=== PATIENT | male | born 1945 | race Caucasian/White ===

== ENCOUNTER 2018-07-24 09:01 | Inpatient (IN) | payer OTHER ==
[~2018-07-24] VITALS: Ht 188 cm; Wt 114.3 kg
--- NOTE | ~2018-07-24 | CON ---
[address] [address] CONSULTATION Name: MEDINA LEGGETT Room: [address] IN ..#: [id number] Admission: 07/24/18 Attend Phys: Villa Hurtado MD Discharge: Date of : 49 Report #: [id number] THIS REPORT FOR: //name// CC: Villa Hurtado FAM unknown [place] CLINIC DATE OF SERVICE: 07/25/2018 HISTORY OF PRESENT ILLNESS: This is a pleasant 73-year-old gentleman with past medical history of multiple sclerosis who is presenting with progressively worsening weakness. The GI service has been consulted for evaluation of abnormal thickening found at the neck of the gallbladder. The patient presented to the hospital with profound weakness and this was determined to be due to multiple sclerosis flare. He denies any abdominal pain, nausea, vomiting, hematemesis, hematochezia or diarrhea. He denies known prior history of gallstones. PAST MEDICAL HISTORY: Significant for multiple sclerosis. PAST SURGICAL HISTORY: The patient had a remote history of a repair in his hand for fracture, left testicle removed as a child. SOCIAL HISTORY: The patient quit smoking a few years back. Prior to that had a [id number] history of smoking. He denies any significant alcohol or recreational drug use. FAMILY HISTORY: There is no family history of colon cancer or [place] related neoplasia. The patient's father although was diagnosed with pancreatic cancer at age 69. REVIEW OF SYSTEMS: A comprehensive 10-point review of systems is negative except what is mentioned in the HPI. PHYSICAL EXAMINATION: VITAL SIGNS: Temperature 36.5, pulse rate 74, respirations 14, blood pressure 121/64. GENERAL: The patient is alert, awake, oriented x 3. HEENT: Pupils are equal, round, reactive to light and accommodation. Mucous membranes are moist. There is no congestion. LUNGS: Clear to auscultation bilaterally. CARDIOVASCULAR: Rate and rhythm regular. S1, S2 present. ABDOMEN: Soft. Gordon sign negative. No guarding or rigidity. IMAGING: Abdomen and pelvis CT demonstrates simple appearing bilateral renal cysts. Nonspecific circumferential bladder wall [place] [id number] CONSULTATION Name: MEDINA LEGGETT Room: [address] IN [facility]#: [id number] Admission: 07/24/18 Attend Phys: Villa Hurtado MD Discharge: Date of : 49 Report #: [id number] neck of the gallbladder, this might reflect previous scarring related to stricturing from stone passage disease or a neoplastic process which cannot be entirely excluded. There is no nodularity. ASSESSMENT AND PLAN: Pleasant 73-year-old gentleman with history of multiple sclerosis admitted with progressive weakness. The patient was incidentally found to have a narrowing at the neck of the gallbladder. GI service has been consulted to evaluate this patient. The patient denies any abdominal pain related to this imaging finding. I would recommend getting a EUS as an outpatient to evaluate this further. The patient reports that he would like to go to the [facility] to have the endoscopic ultrasound done. We will reach out to the patient in about 2 weeks' time to see if [facility] or would like to get it done with us. Thanks for this consultation. No further endoscopic intervention is necessary at this time. By: [id number] Hardin MD /nt
[2018-07-24 09:01] VITALS: BP 130/90
[~2018-07-24 09:01] MED LIST: ASPIRIN81 M2 PO; BACLOFEN 10MG T10 MG PO; BACLOFEN20 MG PO; CHOLESTEROL MED; COUMADIN 3 MG TA3 MG PO; PRAVACHOL 20 MG20 M1 PO
[2018-07-24] MEDS ORDERED: ELIQUIS5 MG PO (09:28)
[2018-07-24] MEDS ORDERED: FLECAINIDE ACET50 M1 PO (09:29)
[2018-07-24 09:30] LABS: HEMATOCRIT 43.4 % (42.0-52.0); HEMOGLOBIN 14.8 gm/dL (14.0-18.0); MCH 31.5 pg (26.0-34.0); MCHC 34.2 g/dL (28.0-37.0); MCV 92.1 fL (80.0-100.0); MPV 8.4 fl. (7.2-11.1); NUCLEATED RBCS 0 /100WBC; PLATELET COUNT* 170 thou/uL (150-400); RBC 4.71 mil/uL (4.50-6.00); RDW-CV 13.9 % (10.5-14.5); WBC 25.5 thou/uL (4.0-11.0)
[2018-07-24] MEDS ORDERED: COZAAR 25 MG TA25 M2 PO (09:30)
[2018-07-24] MEDS ORDERED: LASIX 20 MG TAB20 MG PO (09:30)
[2018-07-24] MEDS ORDERED: LEXAPRO20 MG PO (09:30)
[2018-07-24] MEDS ORDERED: LEVOXYL100 MCG PO (09:30)
[2018-07-24] MEDS ORDERED: CALCIUM 500 +1 EAC5 PO (09:31)
[2018-07-24] MEDS ORDERED: LINZESS145 MCG PO (09:32)
[2018-07-24 09:42] LABS: APTT 36.5 Seconds (25.0-31.3)
[2018-07-24 09:45] LABS: URINE BILIRUBIN NEGATIVE (Negative); URINE BLOOD TRACE (Negative); URINE CLARITY CLEAR; URINE COLOR DARK YELLOW; URINE GLUCOSE-RANDOM NEGATIVE (Negative); URINE KETONES NEGATIVE (Negative); URINE LEUKOCYTES-REFLEX TRACE (Negative); URINE NITRITE-REFLEX NEGATIVE (Negative); URINE PROTEIN NEGATIVE (Negative); URINE UROBILINOGEN 0.2 E.U./dl (0.2-1.0)
[2018-07-24 09:51] LABS: ANION GAP 12 mmol/L (7-16); BUN 13 mg/dL (7-18); CHLORIDE 102 mmol/L (98-107); CO2 24 mmol/L (21-32); GLUCOSE 131 mg/dL (70-99); SODIUM 138 mmol/L (136-145)
[2018-07-24 09:52] LABS: ALBUMIN 3.7 g/dL (3.4-5.0); ALKALINE PHOSPHATASE 104 U/L (46-116); NT-PRO BRAIN NAT PEPTIDE 153 pg/mL (<300); SGOT 22 U/L (15-37); SGPT 43 U/L (30-65); TOTAL BILIRUBIN 0.6 mg/dL (<0.1-1.0); TOTAL PROTEIN 7.6 g/dL (6.4-8.2); TROPONIN-I LEVEL <0.06 ng/mL (<0.06)
[2018-07-24 10:05] LABS: SQUAMOUS 4-10 Moderate /LPF (0-3)
[2018-07-24 10:06] LABS: URINE RBC 0-2 Rare /HPF (0-2); URINE WBC-REFLEX 6-15 Few /HPF (0-5)
[2018-07-24 10:07] LABS: BACTERIA-REFLEX 1-9 Few /HPF (None Seen); CASTS None Seen /LPF (None Seen); CRYSTALS None Seen /LPF (None Seen); MUCUS >6 Heavy strn/LPF (None Seen)
[2018-07-24 10:23] LABS: ABSOLUTE MONOCYTES 2.3 thou/uL (0.0-1.2); ABSOLUTE NEUTROPHILS 22.2 thou/uL (1.6-8.1)
[2018-07-24 10:24] LABS: PLATELET ESTIMATE ADEQUATE
[2018-07-24 10:26] LABS: TOXIC GRANULATION 1+
[2018-07-24 12:40] VITALS: BP 111/62
--- NOTE | 2018-07-24 13:30 | NUR ---
PT ARRIVED TO UNIT FROM ER AT 1240. VITALS STABLE. IV PATENT. ADMIT COMPLETE. FALL RISK BUT IS REFUSING FALL PRECAUTIONS. EDUCATED ON FALL RISKS. CALL LIGHT WITHIN REACH. WILL CONTINUE TO MONITOR.
[2018-07-24 13:31] VITALS: BP 141/61
--- NOTE | 2018-07-24 15:44 | EKG ---
[place] [address] ELECTROCARDIOGRAM REPORT Name: MEDINA LEGGETT Room: [address] IN [facility]#: [id number] Admission: 07/24/18 Attend Phys: Villa Hurtado MD Discharge: Date of : 49 Report #: [id number] THIS REPORT FOR: //name// [facility] ED Test Date: 2018-07-24 Test Time: 09:10:13 Pat Name: MEDINA LEGGETT Department: Room: [facility] Gender: M Field Service Coordinator: KENDY : 1945 Requested By: Wyatt Hernández Order Number: [id number] MD: Chase Goodson Measurements Intervals [place] Rate: 97 P: 52 KS: 163 QRS: 31 QRSD: 114 T: 44 QT: 352 QTc: 447 Interpretive Statements Sinus rhythm Borderline intraventricular conduction delay Abnormal inferior Q waves No previous ECG available for comparison Electronically Signed On 07-24-2018 15:44:21 CDT by Chase Goodson [email or web address] <ELECTRONICALLY SIGNED> By: Chase Goodson MD, [facility] 07/24/18 1544 9 9 Chase Goodson MD, FACC /EPI
--- NOTE | 2018-07-24 16:55 | NUR ---
PT RESTED IN BED SINCE LAST SHIFT. VITALS STABLE. UP WITH 1 USING GAITBELT AND WALKER. STRAIGHT CATH SELF AND WILL LET KNOW WHEN NEEDED. REFUSES FALL PRECAUTIONS, EDUCATION GIVEN. TOLERATED MEAL. IV PATENT. CALL LIGHT WITHIN REACH. WILL CONTINUE TO MONITOR.
[2018-07-24 20:20] VITALS: BP 129/73
[2018-07-25 04:21] LABS: ABSOLUTE BASOPHILS 0.1 thou/uL (0.0-0.2); ABSOLUTE EOSINOPHILS 0.3 thou/uL (0.0-0.7); ABSOLUTE LYMPHOCYTES 2.2 thou/uL (0.8-5.3); ABSOLUTE MONOCYTES 1.1 thou/uL (0.0-1.2); ABSOLUTE NEUTROPHILS 10.1 thou/uL (1.6-8.1); BASOPHILS 0.4 %; EOSINOPHILS 1.9 %; HEMATOCRIT 40.6 % (42.0-52.0); HEMOGLOBIN 13.4 gm/dL (14.0-18.0); LYMPHOCYTES 16.2 %; MCH 31.2 pg (26.0-34.0); MCHC 33.1 g/dL (28.0-37.0); MCV 94.3 fL (80.0-100.0); MONOCYTES 7.9 %; MPV 8.8 fl. (7.2-11.1); NUCLEATED RBCS 0 /100WBC; PLATELET COUNT* 156 thou/uL (150-400); POLYS 73.6 %; RBC 4.31 mil/uL (4.50-6.00); RDW-CV 13.9 % (10.5-14.5); WBC 13.7 thou/uL (4.0-11.0)
[2018-07-25 04:58] LABS: CALCIUM 8.2 mg/dL (8.5-10.1); POTASSIUM 3.5 mmol/L (3.5-5.1)
--- NOTE | 2018-07-25 05:46 | NUR ---
PATIENT HAS SLEPT WELL THROUGHOUT THE NIGHT. VSS ON RA. NO C/O PAIN. PATIENT IS UP WITH MAX ASSIST D/T GENERALIZED WEAKNESS. MEDICATIONS GIVEN ORDERED AND CHARTED. PATIENT STRAIGHT CATHING HIMSELF DURING THE NIGHT WITH ADEQUATE URINE OUTPUT. IV IN LEFT FOREARM-NS @ 100ML/HR. PATIENT INSTRUCTED TO USE CALL LIGHT WHEN NEEDING ASSISTANCE. HOURLY ROUNDS MADE. WILL CONTINUE WITH PLAN OF CARE AND NURSING TO MONITOR.
[2018-07-25 07:58] VITALS: BP 121/64
--- NOTE | 2018-07-25 11:22 | NUR ---
SW met with pt and pt to complete initial assessment, introduce self, and SW role. Pt alert, oriented. Pt jovial, made a joke out of practically every question during assessment. Pt lives at home with . Pt admits pt wants to be strong enough not to fall again at home if pt dc soon. PT came in to work with pt; pt also making jokes after every question with PT. SW to continue to follow to assist with safe dc planning.
--- NOTE | 2018-07-25 18:15 | NUR ---
PT A&Ox4. MINIMAL PAIN, DENIED PAIN MEDS. UP WITH 1. WORKED WELL WITH THERAPY. CONTINUES TO SELF CATH. IV PATENT, INFUSING. REFUSING BED ALARMS. EDUCATED ON FALL RISKS. TOLERATING MEALS. [facility]. WILL CONTINUE TO MONITOR.
[2018-07-25 20:00] VITALS: BP 144/72
[2018-07-26 01:13] LABS: ABSOLUTE EOSINOPHILS 0.3 thou/uL (0.0-0.7); ABSOLUTE LYMPHOCYTES 1.7 thou/uL (0.8-5.3); ABSOLUTE MONOCYTES 1.1 thou/uL (0.0-1.2); ABSOLUTE NEUTROPHILS 6.7 thou/uL (1.6-8.1); BASOPHILS 0.5 %; EOSINOPHILS 3.3 %; HEMATOCRIT 41.2 % (42.0-52.0); HEMOGLOBIN 13.7 gm/dL (14.0-18.0); LYMPHOCYTES 17.2 %; MCH 31.2 pg (26.0-34.0); MCHC 33.2 g/dL (28.0-37.0); MONOCYTES 10.8 %; MPV 8.8 fl. (7.2-11.1); NUCLEATED RBCS 0 /100WBC; PLATELET COUNT* 153 thou/uL (150-400); POLYS 68.2 %; RBC 4.39 mil/uL (4.50-6.00); RDW-CV 14.3 % (10.5-14.5); WBC 9.8 thou/uL (4.0-11.0)
[2018-07-26 01:45] LABS: ALBUMIN 3.1 g/dL (3.4-5.0); TOTAL BILIRUBIN 0.4 mg/dL (<0.1-1.0); TOTAL PROTEIN 6.8 g/dL (6.4-8.2)
--- NOTE | 2018-07-26 07:03 | NUR ---
PATIENT SLEPT WELL THROUGHOUT THE NIGHT. VSS ON RA. NO C/O PAIN. MEDICATIONS GIVEN ORDERED AND CHARTED. PATIENT UP WITH MAX ASSIST TO BSC. PATIENT SELF CATH'S HIMSELF. NO IV AT THIS TIME. PATIENT INSTRUCTED TO USE CALL LIGHT WHEN NEEDING ASSISTANCE. HOURLY ROUNDS MADE. WILL CONTINUE WITH PLAN OF CARE AND NURSING TO MONITOR.
[2018-07-26 07:40] VITALS: BP 127/76
--- NOTE | 2018-07-26 10:27 | NUR ---
Nutrition: Pt admitted with UTI, sepsis. Not currently on sepsis protocol. MS flare up. CHO controlled diet. Tolerating meals. Albumin 3.1. Wt: 252#. Appears at low nutrition risk.
--- NOTE | 2018-07-26 17:02 | NUR ---
ASSUMED CARE OF PATIENT AT APPROX 0730. ALERT AND OREINTED X4. ASSESSMENT COMPLETED AND CHARTED. VSS ON ROOM AIR. NEW IV ACCESS STARTED, FLUIDS AND ANTIBIOTICS INFUSED ORDERED. PATIENT GENERALLY NONCOMPLIANT AND ACCUSING STAFF OF NOT HELPING HIM NEEDED. PATIENT DOES NOT USE CALL LIGHT AT ALL FOR NEEDS. ADMIN KAILEE CALLED OUT FROM PATIENTS ROOM THIS MORNING, ASKIGN FOR HELP, WHEN I ENTERED THE ROOM THE PATIENT WAS SITTING ON THE FLOOR IN FRONT OF THE RECLINER, BESIDE THE BED. PATIENT STATED THAT HE DID NOT CALL, NOR ASK IF HE COULD GET UP FROM THE CHAIR BUT THAT HE WAS GOING TO GET INTO THE CABINET TO GET HIS CLOTHES AND OUT THEM ON. PATIENT STATED THAT HE SLID HINSELF TO THE FLOOR AND HAD PLANNED TO CRAWL OVER TO THE CABINET. STAFF HAD INFORMED HIM ALL MORNING THATHE COULD NOT GET DRESSED, THAT HE NEEDED TO BE IN HIS HOSPITAL GOWN FOR AN MRI THAT WAS TAKING PLACE THIS AFTERNOON. PATIENT WENT FOR MRI AT APPROX 1500 AND RETURNED AT 1645, IMMEDIATELY CALLED OUT ASKING IF HIS RESULTS WERE BACK FROM THE TEST. PATIENT HAD STATED EARLIER IN THE DAY THAT HE WAS GOINGHOME AFTER THE MRI NO MATTER WHAT THE RESULTS WERE. CURRENTLY AWAITING THE RESULTS OF HIS MRI TO COME BACK. PATIENT HAS FAMILY IN THE ROOM AT THIS TIME AND IS TELLING THEM THAT STAFF IGNORED HIM AND ALLOWED HIM TO FELL THIS MORNING. FALL PRECAUTIONS REMAIN IN PLACE. CALL LIGHT IS WITHIN REACH, PATIENT DOS NOT USE IT APPROPRIATELY. HOURLY ROUNDS COMPLETED. NURSING WILL CONTINUE TO MONITOR.
--- NOTE | 2018-07-26 17:54 | NUR ---
PATIENT WANTING TO SIT ON THE EDGE OF THE BED AND REFUSING TO PUT HIS FEET UP IN THE BED SO WE CAN SET THE BED ALARM. REFUSING TO SIT IN THE CHAIR WITH THE CHAIR ALARM. STAFF REPEATEDLY TRIED TO EXPLAIN THAT WE CANNOT LEAVE HIM IN THE ROOM SITTING ON THE EDGE OF THE BED. PATIENT GOT AGITATED AND STATED THAT HE KNOWS WHAT HE CAN AND CANT DO AND HE DOES NOT NEED ALARMS TO CONTROL WHAT HE DOES. I CAME IN AND EXPLAINED TO THE PATIENT AND THE FAMILY THE NEED FOR SAFETY MEASURES THE PATIENT WAS ON THE FLOOR THIS MORNING. PATIENT ADAMANTLY REFUSED TO HAVE ANY SAFETY ALARMS USED AND I STATED THAT IT WAS HIS RIGHT TO REFUSE ANY TREATMENTS OR SAFETY MEASURES IN THE HOSPITAL. PATIENT SITTING ON THE EDGE OF THE BED AT THIS TIME. FAMILY ONLY ASKED IF HE WAS GOING TO GET DINNER, THEY SAID NOTHING ABOUT HIS SAFETY OR ASSIST IN HELPING STAFF TO GET THE PATIENT TO BE SAFE.
[2018-07-26 20:00] VITALS: BP 162/85
[2018-07-27 04:00] VITALS: BP 162/85
--- NOTE | 2018-07-27 05:21 | NUR ---
ASSESSMENT: PT REMAIN ALERT AND ORIENT TIMES FOUR. PT REFUSES TO FOLLOW SAFETY PROTOCOL AND DOES NOT WANT HIS BED/CHAIR ALARM SET. PT HAD A FALL ON DAYS ON 07/26/18. PT AGREED WITH THIS RN THAT IF HE NEEDED TO GET OOB THAT HE WOULD USE HIS CALL BUTTON AND WAIT UNTIL SOMEONE ARRIVED TO ASSIST HIM TO THE BR, CHAIR, ETC. PT WAS VERY COMPLIANT AND COOPERATIVE WITH THIS RN. HE DID REFUSE IVF AND TRAZADONE. PT STRAIGHT CATH SELF. UP TO BR ONCE, NO BM. BLOOD SUGAR WAS 111 THIS EVENING. WILL CONTINUE TO MONITOR. SLOW PROGRESS TOWARDS DC GOALS.
[2018-07-27 07:42] VITALS: BP 126/70
[2018-07-27] MEDS ORDERED: AUGMENTIN 875-1 EACH PO (09:38)
[2018-07-27 09:43] VITALS: BP 126/70
--- NOTE | 2018-07-27 10:16 | NUR ---
ASSUMED CARE OF PT AROUND 0730 THIS AM. REFER TO ASSESSMENT. PT HAS ORDERS TO DC HOME THIS AM. DISCHARGE INSTRUCTIONS GIVEN TO PT AND PT VERBALIZES UNDERSTANDING. IV REMOVED INTACT. WAITING FOR PT'S SPOUSE TO ARRIVE. NO OTHER CONCERNS AT THIS TIME. CLWR .WCMT.
--- NOTE | 2018-07-27 16:55 | CON ---
[address] [address] CONSULTATION Name: MEDINA LEGGETT Room: [address] IN ..#: [id number] Admission: 07/24/18 Attend Phys: Villa Hurtado MD Discharge: 07/27/18 Date of : 49 Report #: [id number] THIS REPORT FOR: //name// CC: Villa Hurtado [facility] unknown [place] CLINIC DATE OF SERVICE: 07/24/2018 UROLOGY CONSULTATION REFERRING PHYSICIAN: Villa Hurtado MD REASON FOR CONSULTATION: Neurogenic bladder with possible UTI. HISTORY OF PRESENT ILLNESS: This is a 73-year-old male admitted with multiple medical problems. Urology is consulted regarding possible UTI and neurogenic bladder. The patient reports that he follows with the [facility] chronically for multiple sclerosis with a neurogenic bladder and urinary retention. He does intermittent self catheterization 3-4 times a day. He reports that he had dilation of the urethral stricture and Klein catheter placement a few weeks ago and since his catheter has been removed, he has been catheterizing easily. He reports that he presented with severe weakness and fatigue. He believes he may have had a fever as well. He denies difficulty passing his catheter. Denies gross hematuria, cloudy urine, pelvic pain, abdominal pain or flank pain. PAST MEDICAL HISTORY: As above. The patient also has a history of hypertension, hypothyroidism, arrhythmia. PAST SURGICAL HISTORY: Neck surgery, hand surgery and left orchiectomy due to a hydrocele years ago per his report. FAMILY HISTORY: He does not know of any family history of renal disease. SOCIAL HISTORY: He denies use of tobacco or alcohol. ALLERGIES: No known drug allergies. MEDICATIONS: List is reviewed. He has been started on warfarin by the primary service empirically. REVIEW OF SYSTEMS: As per history of present illness. Denies chest pain, palpitations, shortness of breath, cough, nausea, vomiting. PHYSICAL EXAMINATION: [place] [address] CONSULTATION Name: MEDINA LEGGETT Room: [address]#: [id number] Admission: 07/24/18 Attend Phys: Villa Hurtado MD Discharge: 07/27/18 Date of : 49 Report #: [id number] VITAL SIGNS: Temperature 36.4, pulse 44, respirations 15, blood pressure 141/61. GENERAL: This is a 73-year-old male in no acute distress. He is awake, alert and answers questions appropriately. HEENT: Normocephalic, atraumatic. NECK: Supple. Extraocular movements are intact. No JVD. Oropharynx is clear. LUNGS: Respiratory effort and excursion are normal. Chest wall is nontender. CARDIAC: Rhythm is regular. Radial pulses are palpable. ABDOMEN: Soft, nontender and nondistended. Bladder is nonpalpable. Spine and costovertebral angles are nontender. EXTREMITIES: Warm. No peripheral edema. GENITOURINARY: Skin of the penis and scrotum is normal. Urethral meatus is orthotopic. Left testicle is surgically absent. Right testicle is nontender. No palpable masses. RECTAL: Digital rectal exam is deferred. The patient states he follows with the [facility] regarding this. LABORATORY DATA: Include sodium 138, potassium 4.0, chloride 102, CO2 of 24, BUN 13, creatinine 1.0, glucose 131. Hemoglobin 14.8, white count 25.5, platelet count 170. Urinalysis revealed 0-2 red cells, 6-15 white cells and a few bacteria as well as epithelial cells. Cultures of the urine and blood are pending. Contrast CT of the abdomen and pelvis reveals bilateral renal cysts and bladder wall thickening. Prostate is unremarkable. IMPRESSION AND PLAN: Neurogenic bladder with urinary retention, managed chronically with intermittent catheterization. The patient has continued intermittent catheterization as an inpatient and reports this is going easily. He is on Rocephin empirically for possible urinary tract infection. CT scan is unremarkable from a urologic standpoint. We will await culture results. No further urologic recommendations at this time. He can resume his followup with the [facility] after recovery from his acute illness. We will defer evaluation of the non-urologic findings on CT scan to the primary service. <ELECTRONICALLY SIGNED> By: Chase Johansen MD 07/27/18 [id number] Johansen MD /nt
== END 2018-07-27 11:10 | disposition home or self-care (01) | DRG 872 ==
LOC: M.ERS 09:01 → M.ORTHSURG 11:00 → M.TBA-ER 11:00 → M.ORTHSURG 13:28
PROVIDERS: Emergency Medicine; ADMIT Internal Medicine
DX: A41.9 Sepsis, unspecified organism (principal); N39.0 Urinary tract infection, site not specified; I10 Essential (primary) hypertension; N31.9 Neuromuscular dysfunction of bladder, unspecified; R33.9 Retention of urine, unspecified; G35 Multiple sclerosis; N28.1 Cyst of kidney, acquired; Z87.891 Personal history of nicotine dependence; Z80.0 Family history of malignant neoplasm of digestive organs; Z79.82 Long term (current) use of aspirin; Z79.899 Other long term (current) drug therapy

== ENCOUNTER 2020-09-09 15:16 | Emergency (ER) | payer OTHER, MEDICARE ==
[~2020-09-09] VITALS: Ht 188 cm; Wt 113.4 kg
[~2020-09-09 15:16] MED LIST changes: +AUGMENTIN 875-1 EACH PO; +CALCIUM 500 +1 EAC5 PO; +COZAAR 25 MG TA25 M2 PO; +ELIQUIS5 MG PO; +FLECAINIDE ACET50 M1 PO; +LASIX 20 MG TAB20 MG PO; +LEVOXYL100 MCG PO; +LEXAPRO20 MG PO; +LINZESS145 MCG PO
[2020-09-09] MEDS ORDERED: BACLOFEN5 MG PO (17:32)
[2020-09-09] MEDS ORDERED: DOXYCYCLINE 10100 MG PO (17:54)
[2020-09-09 18:04] VITALS: BP 144/90
== END 2020-09-09 18:05 | disposition home or self-care (01) ==
LOC: M.ERS 15:16
DX: S80.811A Abrasion, right lower leg, initial encounter (principal); L08.9 Local infection of the skin and subcutaneous tissue, unspecified; L03.115 Cellulitis of right lower limb; F17.210 Nicotine dependence, cigarettes, uncomplicated; X58.XXXA Exposure to other specified factors, initial encounter; Y93.89 Activity, other specified; Y92.89 Other specified places as the place of occurrence of the external cause; Y99.8 Other external cause status